=== PATIENT | female | born 1950 | race Asian ===

== ENCOUNTER 2024-04-11 08:47 | Outpatient (RCR) | payer MEDICARE, SELFPAY | END 2024-08-09 23:59 | disposition home or self-care (01) | PROVIDERS: PCP Family Medicine; Visit Provider Student in an Organized Health Care Education/Training Program | DX: S39.012A Strain of muscle, fascia and tendon of lower back, initial encounter (principal); Z51.89 Encounter for other specified aftercare | CPT/HCPCS: 97110; 97162 ==